=== PATIENT | female | born 1940 | race Hispanic/Latino ===

== ENCOUNTER 2019-03-24 07:22 | Day surgery (SDC) | payer OTHER ==
[2019-03-22 15:38] VITALS: BP 130/61
[2019-03-22 15:44] LABS: BASOPHILS % (AUTO) 0.7 % (0.0-5.0); HEMATOCRIT 36.1 % (36-48); MEAN CORPUSCULAR HEMOGLOBIN 30.1 pg (27.0-33.0); MEAN CORPUSCULAR HGB CONC 32.7 g/dL (32.0-36.0); MONOCYTES % (AUTO) 7.6 % (3.0-13.0); NEUTROPHILS % (AUTO) 63.7 % (40.0-77.0); PLATELET COUNT (AUTO) 362 K/uL (130-400); RED BLOOD CELL COUNT(AUTO) 3.92 MIL/uL (4.00-5.50); WHITE BLOOD COUNT (AUTO) 8.9 K/uL (4.8-10.8)
[2019-03-22 15:54] LABS: CREATININE 1.7 mg/dL (0.5-1.5); POTASSIUM 4.7 mmol/L (3.5-5.1)
[2019-03-22] MEDS: LEVOFLOXACIN 500 MG/D5W 100 ML 100 ML IV SCH (17:45)
--- NOTE | 2019-03-23 13:22 | NUR ---
LABS ABNORMAL LABS FAXED TO DR. CURTIS AND WHERE REVIEWED, NO FURTHER ORDERS GIVEN , OK TO PROCEED WITH SX
[~2019-03-24] VITALS: Ht 162.6 cm; Wt 71.7 kg
[2019-03-24] VITALS (15 sets, daily range): BP systolic 111–148; BP diastolic 47–80
[~2019-03-24 07:22] MED LIST: MIRA50TA PO; MULT1CAP32 PO
[2019-03-24] MEDS ORDERED: IOHEXOL-350 50ML VIAL IV ONE (07:58)
[2019-03-24] MEDS ORDERED: LACTATED RINGERS 1000ML 1,000 ML IV ONE (07:59)
[2019-03-24] MEDS: LEVOFLOXACIN 500 MG/D5W 100 ML 100 ML IV SCH (08:35)
[2019-03-24] MEDS ORDERED: DEXAMETHASONE SOD PHOSPHATE 10MG/ML 1ML VIAL ONE (08:35)
[2019-03-24] MEDS ORDERED: LIDOCAINE PF 2% 5ML ABBOJECT ONE (08:35)
[2019-03-24] MEDS ORDERED: ONDANSETRON HCL 4 MG/2 ML VIAL ONE (08:36)
[2019-03-24] MEDS ORDERED: PROPOFOL 10 MG/ML 20ML VIAL IV ONE (08:36)
[2019-03-24] MEDS ORDERED: FENTANYL CITRATE PF 50 MCG/1 ML 2ML VIAL ONE (08:36)
[2019-03-24] MEDS ORDERED: MIDAZOLAM HCL 1 MG/ML 2ML VIAL ONE (08:36)
[2019-03-24] MEDS ORDERED: EPHEDRINE SULFATE 50 MG/ML AMPULE ONE (08:47)
--- NOTE | 2019-03-24 10:20 | NUR ---
FC PT HAS 16FRENCH F/C DRAINING AT BEDSIDE TO GRAVITY WITH CLOUDY, YELLOW URINE IN BAG. DISCONTINUED F/C USING ASEPTIC TECHNIQUE. TOLERATED PROCEDURE WELL. DENIES ANY PAIN OR DISCOMFORT.
[2019-03-24] MEDS ORDERED: PHENAZOPYRIDINE HCL 200 MG TABLET ONE (10:28)
--- NOTE | 2019-03-24 11:10 | NUR ---
DISCHARGE ORAL AND WRITTEN DISCHARGE INSTRUCTIONS GIVEN TO PT AND PTS DAUGHTER. INSTRUCTED THE IMPORTANCE OF HAVING PT URINATE WITHIN 6 HOURS OF HAVING PAYNE CATHETER DISCONTINUED. IF NO URINATION INFORM DR. CURTIS OR SEND PT TO HOSPITAL. BOTH VERBALIZED UNDERSTANDING. NO OTHER QUESTIONS AT THIS TIME.
== END 2019-03-24 11:10 | disposition home or self-care (01) ==
LOC: DAH 07:22
PROVIDERS: ATTEND Urology
DX: N13.1 Hydronephrosis with ureteral stricture, not elsewhere classified (principal); N81.10 Cystocele, unspecified; M19.90 Unspecified osteoarthritis, unspecified site; Z90.710 Acquired absence of both cervix and uterus; Z85.42 Personal history of malignant neoplasm of other parts of uterus; Z79.899 Other long term (current) drug therapy; Z82.49 Family history of ischemic heart disease and other diseases of the circulatory system
CPT/HCPCS: 36415; 52332; 80048; 85025; A4344; A4358; A4510; A4600; C1758; C1769; C2617 ×2; J1100; J1956; J2001; J2250; J2405; J2704; J3010; J3490; J7120 ×2; 77002; Q9967

== ENCOUNTER 2019-07-14 07:22 | Day surgery (SDC) | payer OTHER ==
[2019-07-12 16:21] LABS: BASOPHILS % (AUTO) 0.8 % (0.0-5.0); EOSINOPHILS % (AUTO) 2.9 % (0.0-8.0); HEMATOCRIT 35.3 % (36-48); LYMPHOCYTES % (AUTO) 31.4 % (21.0-51.0); MEAN CORPUSCULAR HEMOGLOBIN 30.7 pg (27.0-33.0); MEAN CORPUSCULAR HGB CONC 32.9 g/dL (32.0-36.0); MEAN CORPUSCULAR VOLUME 93.2 fL (79-99); MONOCYTES % (AUTO) 8.7 % (3.0-13.0); NEUTROPHILS % (AUTO) 56.2 % (40.0-77.0); PLATELET COUNT (AUTO) 306 K/uL (130-400); RED BLOOD CELL COUNT(AUTO) 3.79 MIL/uL (4.00-5.50); RED CELL DISTRIBUTION WIDTH 15.1 % (11.0-15.5); WHITE BLOOD COUNT (AUTO) 8.6 K/uL (4.8-10.8)
[2019-07-12 16:31] LABS: CREATININE 1.8 mg/dL (0.5-1.5); POTASSIUM 4.1 mmol/L (3.5-5.1)
[2019-07-12 16:58] VITALS: BP 156/82
[2019-07-14] VITALS (14 sets, daily range): BP systolic 120–146; BP diastolic 56–78
[~2019-07-14] VITALS: Ht 163.8 cm; Wt 73.3 kg
[~2019-07-14 07:22] MED LIST changes: +ASPI81TA40 PO; +CEFTRIAXONE SODIUM 1 GM IVP SCH; +CHOL200074 PO; +CYAN500T63 PO; +LACT1CAP78 PO
[2019-07-14] MEDS ORDERED: IOHEXOL-350 50ML VIAL IV ONE (08:05)
[2019-07-14] MEDS ORDERED: LACTATED RINGERS 1000ML 1,000 ML IV ONE (08:05)
[2019-07-14] MEDS ORDERED: MIDAZOLAM HCL 1 MG/ML 2ML VIAL ONE (09:09)
[2019-07-14] MEDS ORDERED: ONDANSETRON HCL 4 MG/2 ML VIAL ONE (09:09)
[2019-07-14] MEDS ORDERED: LIDOCAINE PF 2% 5ML ABBOJECT ONE (09:09)
[2019-07-14] MEDS ORDERED: PROPOFOL 10 MG/ML 20ML VIAL IV ONE (09:09)
[2019-07-14] MEDS ORDERED: DEXAMETHASONE SOD PHOSPHATE 10MG/ML 1ML VIAL ONE (09:09)
[2019-07-14] MEDS ORDERED: FENTANYL CITRATE PF 50 MCG/1 ML 2ML VIAL ONE (09:09)
--- NOTE | 2019-07-14 10:34 | NUR ---
POST-PROCEDURE RECEIVED FROM RR VIA STRETCHER S/P BILATERAL URETERAL STENT EXCHANGE. AWAKE IN NO ACUTE DISTRESS. CONNECTED TO CONTINUOUS CARDIOPULMONARY MONITORING. SIDE RAILS UP X2, BED IN LOWEST POSITION, CALL LIGHT W/IN REACH.
[2019-07-14] MEDS ORDERED: PHENAZOPYRIDINE HCL 200 MG TABLET ONE (10:46)
--- NOTE | 2019-07-14 11:00 | NUR ---
ACTIVITY UP TO CHAIR W/ STANDBY ASSIST OF 1. GAIT TOLERATED W/O COMPLICATIONS.
--- NOTE | 2019-07-14 11:09 | NUR ---
DISCHARGE INSTRUCTIONS DAY PT DISCHARGE INSTRUCTION SHEET, MED REC, AND PT SUMMARY REVIEWED WITH PT AND SISTER. PT INSTRUCTED TO RETURN TO ER IF UNABLE TO VOID IN 6-8 HOURS. BOTH VERBALIZED UNDERSTANDING. OPPORTUNITY GIVEN TO ASK QUESTIONS. QUESTIONS ADDRESSED.
--- NOTE | 2019-07-14 11:15 | NUR ---
DISCHARGE DISCHARGED VIA W/C. AWAKE IN NO ACUTE DISTRESS.
== END 2019-07-14 11:15 | disposition home or self-care (01) ==
LOC: DAH 07:22
PROVIDERS: ATTEND Urology
DX: N13.1 Hydronephrosis with ureteral stricture, not elsewhere classified (principal); N18.9 Chronic kidney disease, unspecified; M19.90 Unspecified osteoarthritis, unspecified site; Z85.42 Personal history of malignant neoplasm of other parts of uterus; Z98.890 Other specified postprocedural states; Z90.710 Acquired absence of both cervix and uterus
CPT/HCPCS: 36415; 52332; 77002; 80048; 85025; A4215; A4221; A4222; A4223; A4344; A4358; A4600; A4663; A4930; A6260; C1758; C1769; C2617 ×2; J0696; J1100; J2001; J2250; J2405; J2704; J3010; J7120 ×2; Q9967

== ENCOUNTER 2019-12-02 18:05 | Observation (INO) | payer OTHER ==
[~2019-12-02] VITALS: Ht 162.6 cm; Wt 69.9 kg
[~2019-12-02 18:05] MED LIST changes: -CEFTRIAXONE SODIUM 1 GM IVP SCH
[2019-12-02 20:03] LABS: BASOPHILS % (AUTO) 0.8 % (0.0-5.0); HEMATOCRIT 32.9 % (36-48); LYMPHOCYTES % (AUTO) 38.7 % (21.0-51.0); MEAN CORPUSCULAR HGB CONC 31.3 g/dL (32.0-36.0); MEAN CORPUSCULAR VOLUME 92.7 fL (79-99); MONOCYTES % (AUTO) 8.3 % (3.0-13.0); NEUTROPHILS % (AUTO) 48.9 % (40.0-77.0); PLATELET COUNT (AUTO) 260 K/uL (130-400); RED BLOOD CELL COUNT(AUTO) 3.55 MIL/uL (4.00-5.50); RED CELL DISTRIBUTION WIDTH 14.6 % (11.0-15.5); WHITE BLOOD COUNT (AUTO) 7.6 K/uL (4.8-10.8)
[2019-12-02 20:07] LABS: APPEARANCE,URINE CLOUDY (CLEAR); BILIRUBIN,URINE NEGATIVE (NEGATIVE); COLOR,URINE YELLOW (YELLOW); GLUCOSE, URINE (UA) NEGATIVE (NEGATIVE); KETONES,URINE NEGATIVE (NEGATIVE); LEUKOCYTE ESTERASE ,URINE LARGE (NEGATIVE); NITRATE,URINE NEGATIVE (NEGATIVE); OCCULT BLOOD,URINE MODERATE (NEGATIVE); PROTEIN,URINE 30 mg/dL (NEGATIVE); UROBILINOGEN,URINE 0.2 mg/dL (0.2-1.0)
[2019-12-02 20:17] LABS: CREATININE 1.9 mg/dL (0.5-1.5); POTASSIUM 5.3 mmol/L (3.5-5.1)
[2019-12-02 20:17] LABS: BACTERIA,URINE Few /HPF (None Seen); SQUAMOUS EPITHELIAL CELL,UR Rare /HPF (0-2); WBC,URINE >100 /HPF (0-1)
[2019-12-02 20:18] LABS: INR 0.91 (0.85-1.15); PARTIAL THROMBOPLASTIN TIME 27.7 SEC (26.3-35.5); PROTHROMBIN TIME 9.6 SEC (9.6-11.6)
[2019-12-02 20:22] LABS: ALBUMIN 3.2 g/dL (3.5-5.0); BILIRUBIN,TOTAL 0.2 mg/dL (0.2-1.0); TOTAL PROTEIN, SERUM 7.6 g/dL (6.0-8.3)
[2019-12-02 21:00] LABS: B-TYPE NATRIURETIC PEPTIDE 42 pg/mL (0-100)
[2019-12-02] MEDS ORDERED: SODIUM CHLORIDE 0.9% 1000ML 1,000 ML IV ONE (21:33)
[2019-12-02] MEDS ORDERED: CEFTRIAXONE SODIUM 1 GM ONE (21:33)
[2019-12-02 23:15] VITALS: BP 139/58
[2019-12-02] MEDS ORDERED: SODIUM CHLORIDE 0.9% 1000ML 1,000 ML IV SCH (23:30)
[2019-12-02] MEDS ORDERED: MIRA50TA PO (23:50)
[2019-12-02] MEDS ORDERED: VITAMIN E PO (23:52)
[2019-12-03 03:00] VITALS: BP 143/73
[2019-12-03 05:58] LABS: HEMATOCRIT 31.4 % (36-48); MEAN CORPUSCULAR HEMOGLOBIN 28.6 pg (27.0-33.0); MEAN CORPUSCULAR HGB CONC 30.9 g/dL (32.0-36.0); MEAN CORPUSCULAR VOLUME 92.6 fL (79-99); PLATELET COUNT (AUTO) 262 K/uL (130-400); RED BLOOD CELL COUNT(AUTO) 3.39 MIL/uL (4.00-5.50); RED CELL DISTRIBUTION WIDTH 14.7 % (11.0-15.5); WHITE BLOOD COUNT (AUTO) 7.4 K/uL (4.8-10.8)
[2019-12-03 06:12] LABS: CREATININE 1.8 mg/dL (0.5-1.5)
[2019-12-03] MEDS ORDERED: CEFTRIAXONE SODIUM 1 GM IVP SCH (09:00)
[2019-12-03] MEDS ORDERED: CEPH500T PO (09:28)
--- NOTE | 2019-12-03 10:45 | NUR ---
DISCHARGE PATIENT GIVEN DISCHARGE INSTRUCTIONS VIA TEACH BACK. 20G PIV TO LAC DISCONTINUED, TIP INTACT. PATIENT TO FOLLOW UP WITH DR. SMITH IN 3 TO 5 DAYS. RX GIVEN FOR CEPHALEXIN 500MG 1 CAP PO TID X 7 DAYS. PATIENT STABLE AT THIS TIME. PATIENT WHEELED TO LOBBY BY LIGIA MIX.
== END 2019-12-03 10:55 | disposition home or self-care (01) ==
LOC: EDH 18:05 → EDHIP 21:31 → 4DH 23:11
PROVIDERS: ADMIT Internal Medicine; ATTEND Internal Medicine
DX: K80.20 Calculus of gallbladder without cholecystitis without obstruction (principal); N13.30 Unspecified hydronephrosis; N39.46 Mixed incontinence; E86.0 Dehydration; N39.0 Urinary tract infection, site not specified; J90 Pleural effusion, not elsewhere classified; E78.2 Mixed hyperlipidemia; N18.9 Chronic kidney disease, unspecified; Z90.711 Acquired absence of uterus with remaining cervical stump
CPT/HCPCS: 36415 ×2; 71045; 74176; 80048; 80053; 81001; 82550; 83605; 83880; 84484; 85025; 85027; 85610; 85730; 87040; 87077; 87088; 87186; 87804 ×2; 93005; 96361 ×2; 96374; 99285; G0378 ×4; J0696 ×2; J7030 ×2

== ENCOUNTER 2020-03-15 07:03 | Day surgery (SDC) | payer OTHER ==
[2020-03-12 12:41] LABS: BASOPHILS % (AUTO) 0.7 % (0.0-5.0); EOSINOPHILS % (AUTO) 1.7 % (0.0-8.0); HEMATOCRIT 34.8 % (36-48); LYMPHOCYTES % (AUTO) 39.5 % (21.0-51.0); MEAN CORPUSCULAR HEMOGLOBIN 29.5 pg (27.0-33.0); MEAN CORPUSCULAR HGB CONC 30.7 g/dL (32.0-36.0); MEAN CORPUSCULAR VOLUME 95.9 fL (79-99); NEUTROPHILS % (AUTO) 51.9 % (40.0-77.0); PLATELET COUNT (AUTO) 277 K/uL (130-400); RED BLOOD CELL COUNT(AUTO) 3.63 MIL/uL (4.00-5.50); RED CELL DISTRIBUTION WIDTH 13.8 % (11.0-15.5)
[2020-03-12 12:51] LABS: CREATININE 1.8 mg/dL (0.5-1.5); POTASSIUM 4.6 mmol/L (3.5-5.1)
[2020-03-14 14:42] VITALS: BP 155/74
[2020-03-15] VITALS (15 sets, daily range): BP systolic 112–144; BP diastolic 45–69
[~2020-03-15] VITALS: Ht 162.6 cm; Wt 74.8 kg
[~2020-03-15 07:03] MED LIST changes: +ASCO500C18 PO; +CHOL2000 PO; -CHOL200074 PO; +CYAN200018 PO; -CYAN500T63 PO; +LORA-997 PO; -MIRA50TA PO; -MULT1CAP32 PO; +ROSU5TAB12 PO; +VITAMIN E PO
--- NOTE | 2020-03-15 08:20 | NUR ---
PRE-PROCEDURE RECEIVED TO [facility] FOR SCHEDULED CYSTO AND BILATERAL STENT EXCHANGE. AWAKE IN NO ACUTE DISTRESS. DENIES PAIN. STRETCHER IN LOWEST POSITION, CALL LIGHT W/IN REACH, AND SIDE RAILS UP X2.
[2020-03-15] MEDS ORDERED: LACTATED RINGERS 1000ML 1,000 ML IV ONE (08:24)
[2020-03-15] MEDS: CEFTRIAXONE SODIUM 1 GM IVP SCH ×2 (08:55→10:55)
[2020-03-15] MEDS ORDERED: IOHEXOL-350 50ML VIAL IV ONE (09:01)
--- NOTE | 2020-03-15 09:05 | NUR ---
TEDS/SCDS PLACED.
--- NOTE | 2020-03-15 10:16 | NUR ---
BELONGINGS SENT TO SECURITY.
[2020-03-15] MEDS ORDERED: DEXAMETHASONE SOD PHOSPHATE 10MG/ML 1ML VIAL ONE (10:52)
[2020-03-15] MEDS ORDERED: LIDOCAINE PF 2% 5ML ABBOJECT ONE (10:52)
[2020-03-15] MEDS ORDERED: PROPOFOL 10 MG/ML 20ML VIAL IV ONE (10:53)
[2020-03-15] MEDS ORDERED: FENTANYL CITRATE PF 50 MCG/1 ML 2ML VIAL ONE (10:53)
[2020-03-15] MEDS ORDERED: MIDAZOLAM HCL 1 MG/ML 2ML VIAL ONE (10:53)
[2020-03-15] MEDS ORDERED: ONDANSETRON HCL 4 MG/2 ML VIAL ONE (10:53)
[2020-03-15] MEDS ORDERED: EPHEDRINE SULFATE 50 MG/ML AMPULE ONE (11:03)
--- NOTE | 2020-03-15 12:36 | NUR ---
POST-PROCEDURE RECEIVED FROM RR TO DAY 8 S/P BILATERAL STENT EXCHANGE. AWAKE IN NO ACUTE DISTRESS. CONNECTED TO CONTINUOUS CARDIOPULMONARY MONITORING. SIDE RAILS UP X2, STRETCHER IN LOWEST POSITION, AND CALL LIGHT W/IN REACH. 10ML OF STERILE WATER REMOVED FROM F/C [place], F/C DCD INTACT. TOLERATED W/O COMPLICATIONS.
[2020-03-15] MEDS ORDERED: PHENAZOPYRIDINE HCL 200 MG TABLET ONE (12:40)
--- NOTE | 2020-03-15 12:57 | NUR ---
REPORT REPORT GIVEN TO CRISTIN MILLER USING SBAR. VERBALIZED UNDERSTANDING.
--- NOTE | 2020-03-15 13:30 | NUR ---
DISCHARGE PT AND DAUGHTER HUNTER GIVEN DISCHARGE INSTRUCTIONS. PT ALSO GIVEN SCRIPT FOR KEFLEX. PT IN NO DISTRESS TAKEN OUT VIA W/C BY ILANA STRONG
== END 2020-03-15 13:30 | disposition home or self-care (01) ==
LOC: DAH 07:03
PROVIDERS: ATTEND Urology
DX: N13.1 Hydronephrosis with ureteral stricture, not elsewhere classified (principal); N18.9 Chronic kidney disease, unspecified; M19.90 Unspecified osteoarthritis, unspecified site; Z79.899 Other long term (current) drug therapy
CPT/HCPCS: 36415; 52332; 74018; 80048; 85025; 93005; A4215; A4221; A4222; A4223; A4344; A4510; A4663; A5113; A6204; A6260; C1758; C1769; C2617 ×2; J0696; J1100; J2001; J2250; J2405; J2704; J3010; J3490; J7120 ×2; U0003; Q9967

== ENCOUNTER 2020-11-29 07:28 | Day surgery (SDC) | payer OTHER ==
[2020-11-26 11:25] VITALS: BP 158/68
[2020-11-26 11:43] LABS: BASOPHILS % (AUTO) 0.7 % (0.0-5.0); EOSINOPHILS % (AUTO) 2.3 % (0.0-8.0); HEMATOCRIT 33.3 % (36-48); LYMPHOCYTES % (AUTO) 29.9 % (21.0-51.0); MEAN CORPUSCULAR HEMOGLOBIN 28.5 pg (27.0-33.0); MEAN CORPUSCULAR HGB CONC 30.6 g/dL (32.0-36.0); MONOCYTES % (AUTO) 8.8 % (3.0-13.0); NEUTROPHILS % (AUTO) 58.2 % (40.0-77.0); PLATELET COUNT (AUTO) 303 K/uL (130-400); RED BLOOD CELL COUNT(AUTO) 3.58 MIL/uL (4.00-5.50); RED CELL DISTRIBUTION WIDTH 15.2 % (11.0-15.5)
[2020-11-26 11:51] LABS: CREATININE 1.9 mg/dL (0.5-1.5); POTASSIUM 4.5 mmol/L (3.5-5.1)
[~2020-11-29] VITALS: Ht 162.6 cm; Wt 76.2 kg
[2020-11-29] VITALS (16 sets, daily range): BP systolic 123–145; BP diastolic 48–70
[~2020-11-29 07:28] MED LIST changes: -ASCO500C18 PO; -ROSU5TAB12 PO
[2020-11-29] MEDS ORDERED: 0.9%NACL 1000ML 1,000 ML IV ONE (07:53)
[2020-11-29] MEDS ORDERED: CEFTRIAXONE 1G VIAL ONE (07:53)
[2020-11-29] MEDS ORDERED: ROCURONIUM 10MG/1ML SYR 10 MG/ML ML ONE (08:17)
[2020-11-29] MEDS ORDERED: LIDOCAINE PF 100MG/5ML (2%) SYRINGE 5ML ONE (08:17)
[2020-11-29] MEDS ORDERED: MIDAZOLAM HCL 1 MG/ML 2ML VIAL ONE (08:17)
[2020-11-29] MEDS ORDERED: PROPOFOL 10 MG/ML 20ML VIAL IV ONE (08:17)
[2020-11-29] MEDS ORDERED: FENTANYL CITRATE PF 50 MCG/1 ML 2ML VIAL ONE (08:17)
[2020-11-29] MEDS ORDERED: SUCCINYLCHOLINE 200MG/10ML SYR ONE (08:21)
[2020-11-29] MEDS ORDERED: ONDANSETRON 4MG INJ ONE (08:21)
[2020-11-29] MEDS ORDERED: IOHEXOL-350 50ML VIAL IV ONE (08:35)
[2020-11-29] MEDS ORDERED: PHENYLEPHRINE HCL 10 MG/ML 1ML VIAL IV ONE (10:20)
[2020-11-29] MEDS ORDERED: PHENAZOPYRIDINE HCL 200 MG TABLET ONE (12:00)
[2021-03-27] MEDS ORDERED: PITA2TAB2 PO (11:47)
[2021-03-27] MEDS ORDERED: zinc PO (11:47)
[2021-03-27] MEDS ORDERED: biotin PO (11:47)
== END 2020-11-29 12:40 | disposition home or self-care (01) ==
LOC: DAH 07:28
PROVIDERS: ATTEND Urology
DX: N13.1 Hydronephrosis with ureteral stricture, not elsewhere classified (principal); N18.9 Chronic kidney disease, unspecified; Z20.828 Contact with and (suspected) exposure to other viral communicable diseases
CPT/HCPCS: 36415; 52332; 74420; 80048; 85025; 93005; A4215; A4221; A4222; A4223; A4335; A4344; A4358; A4510; A4663; A4930 ×2; C1758; C1769; C2617 ×2; C9803; J0330; J0696; J2001; J2250; J2370; J2405; J2704; J3010; J7030; J7120; Q9967; U0003

== ENCOUNTER 2021-03-28 06:55 | Day surgery (SDC) | payer OTHER ==
[2021-03-27 11:41] VITALS: BP 142/62
[2021-03-28] VITALS (20 sets, daily range): BP systolic 116–189; BP diastolic 52–85
[~2021-03-28] VITALS: Ht 162.6 cm; Wt 75.2 kg
[~2021-03-28 06:55] MED LIST changes: +PITA2TAB2 PO; +biotin PO; +zinc PO
[2021-03-28] MEDS ORDERED: IOHEXOL-350 50ML VIAL IV ONE (07:48)
[2021-03-28] MEDS: LEVOFLOXACIN 500 MG/D5W 100 ML 100 ML IV SCH ×2 (08:00→08:25)
[2021-03-28] MEDS ORDERED: LACTATED RINGERS 1000ML 1,000 ML IV ONE (08:02)
[2021-03-28] MEDS ORDERED: LIDOCAINE PF 100MG/5ML (2%) SYRINGE 5ML ONE ×2 (08:07)
[2021-03-28] MEDS ORDERED: MIDAZOLAM HCL 1 MG/ML 2ML VIAL ONE (08:07)
[2021-03-28] MEDS ORDERED: ONDANSETRON 4MG INJ ONE (08:07)
[2021-03-28] MEDS ORDERED: DEXAMETHASONE SOD PHOSPHATE 10MG/ML 1ML VIAL ONE (08:07)
[2021-03-28] MEDS ORDERED: FENTANYL CITRATE PF 50 MCG/1 ML 2ML VIAL ONE (08:07)
[2021-03-28] MEDS ORDERED: ROCURONIUM 10MG/1ML SYR 10 MG/ML ML ONE (08:07)
[2021-03-28] MEDS ORDERED: SUCCINYLCHOLINE 200MG/10ML SYR ONE ×2 (08:07→08:08)
[2021-03-28] MEDS ORDERED: GLYCOPYRROLATE 1 MG/5 ML SYRINGE ONE (08:07)
[2021-03-28] MEDS ORDERED: NEOSTIGMINE 5MG/5ML SYR IV ONE (08:07)
[2021-03-28] MEDS ORDERED: PROPOFOL 10 MG/ML 20ML VIAL IV ONE (08:07)
[2021-03-28] MEDS ORDERED: PHENAZOPYRIDINE HCL 200 MG TABLET ONE (10:21)
== END 2021-03-28 12:20 | disposition home or self-care (01) ==
LOC: DAH 06:55
PROVIDERS: ATTEND Urology
DX: N13.1 Hydronephrosis with ureteral stricture, not elsewhere classified (principal); Z20.822 Contact with and (suspected) exposure to COVID-19; Z79.899 Other long term (current) drug therapy; N30.20 Other chronic cystitis without hematuria; I12.9 Hypertensive chronic kidney disease with stage 1 through stage 4 chronic kidney disease, or unspecified chronic kidney disease; N18.9 Chronic kidney disease, unspecified; Z79.82 Long term (current) use of aspirin; Z98.890 Other specified postprocedural states
CPT/HCPCS: 52332; 74018; 87635; A4215; A4221; A4222; A4223 ×2; A4335; A4358; A4495; A4520; A4554; A4600; A4615; A4663; A6260; C1758; C1769; C2617 ×2; C9803; J0330 ×2; J1100; J2001 ×2; J2250; J2405; J2704; J2710; J3010; J3490; J7120 ×2; J1956; Q9967

== ENCOUNTER → 2021-10-14 | Outpatient (CLI) | payer OTHER | END | disposition home or self-care (01) | LOC: RAH 09:42 | PROVIDERS: ATTEND Internal Medicine | DX: N13.30 Unspecified hydronephrosis (principal); K80.20 Calculus of gallbladder without cholecystitis without obstruction; R91.8 Other nonspecific abnormal finding of lung field; R53.1 Weakness; R63.4 Abnormal weight loss; Z96.0 Presence of urogenital implants | CPT/HCPCS: 71250; 74176 ==